=== PATIENT | male | born 1995 | race Caucasian/White ===

== ENCOUNTER 2018-02-02 17:36 | Emergency (ER) | payer BC ==
[2018-02-02 19:35] VITALS: BP 124/56
--- NOTE | 2018-02-02 19:40 | ED ---
Allergic Reaction/Systemic - HPI Summary HPI Summary: Pt here w/ allergic reaction 40 mins after allergy shot at [facility]. He's not positive, but may have had a higher dose this time. Reports he typically takes Meg prior to this procedure and he did the same thing today. He noted feeling flushed and itchy on his drive home from his appointment and when he was able to investigate his skin, noted a rash over his thorax with itching in his armpits and his injection site was read, swollen and itchy. These symptoms have since resolved without any additional intervention. He denies history of anaphylaxis and does not have an EpiPen. Denies facial swelling, focal to swallowing or breathing and no wheezing. He does have asthma and took 2 inhalations of his albuterol HFA prior to arrival although he admits he did not have any breathing symptoms - simply took this as a precautionary measure. - History of Current Complaint Chief Complaint: EDAllergicReaction Time Seen by Provider: 02/02/18 18:52 Pain Intensity: 0 Pain Scale Used: 0-10 Numeric - Allergies/Home Medications Allergies/Adverse Reactions: Allergies Allergy/AdvReac Type Severity Reaction Status Date / Time No Known Allergies Allergy Verified 02/02/18 17:52 PMH/Surg Hx/FS Hx/Imm Hx Infectious Disease History: No Infectious Disease History: Denies: Traveled Outside the [place] in Last 30 Days - Social History Alcohol Use: Occasionally Substance Use Type: Reports: None Smoking Status (MU): Never Smoked Tobacco Physical Exam Vital Signs On Initial Exam: Initial Vitals Temp Pulse Resp BP Pulse Ox 98.9 F 63 16 138/72 100 02/02/18 17:49 02/02/18 17:49 02/02/18 17:49 02/02/18 17:49 02/02/18 17:49 Skin: Positive: Warm - Lt tricep region w/ erytema, edema about what appears to be an injection site - no fever to touch Diagnostics - Vital Signs Vital Signs Temp Pulse Resp BP Pulse Ox 02/02/18 19:33 98.0 F 88 16 124/56 99 02/02/18 17:49 98.9 F 63 16 138/72 100 - Laboratory Lab Statement: Any lab studies that have been ordered have been reviewed, and results considered in the medical decision making process. Discharge - Discharge Plan Condition: Stable Disposition: HOME Prescriptions: EPINEPHrine [Epipen 2-Ted] 0.3 mg IM ONCE PRN #1 inj PRN Reason: Allergy Symptoms Patient Education Materials: Anaphylaxis (ED), General Allergic Reaction (ED) Referrals: [facility] [place] PHYSICIAN REFERRAL [Outside] Wood Coats MD [Medical Doctor] - No Primary Care Phys,NOPCP [Primary Care Provider] - Additional Instructions: You appear to have had an allergic reaction today to your allergy shot. If symptoms return this evening, you may take 50 mg of Benadryl and a cool shower as well as implementing hydration by drinking plenty of water. If your symptoms persist, return to the emergency department or if minor, follow -up with auto garage mechanic. You may follow up with her auto garage mechanic by calling tomorrow to update them of your symptoms and outcomes from today. Inquire about possible increase in dose of immune treatment, change in recipe, additional of new items, etc. Additionally, an EpiPen was sent to your pharmacy in the event that you develop anaphylaxis in the future. Anaphylaxis includes tongue or facial swelling, throat swelling or tightness, difficulty swallowing or breathing. If you develop any of the symptoms, inject yourself in the thigh with your EpiPen and go to the nearest emergency room or call 911. - Billing Disposition and Condition Condition: STABLE Disposition: HOME
== END 2018-02-02 19:33 | disposition home or self-care (01) ==
LOC: EDBD → ED 17:36
DX: T78.40XA Allergy, unspecified, initial encounter (principal); L29.9 Pruritus, unspecified; R60.0 Localized edema; X58.XXXA Exposure to other specified factors, initial encounter
CPT/HCPCS: 99281